=== PATIENT | male | born 1985 | race African-American/Black ===

== ENCOUNTER → 2018-12-12 | Emergency (ER) | payer SELFPAY ==
[~2018-12-12] MED LIST: AMOX TR/POT CLAV 875MG/125MG TABLETS (FP) ONE; AMOX TR/POT CLAV 875MG/125MG TABLETS (FP) PO ONE; DIPHTH,PERTUSS(ACELL),TET 0.5 ML DISP.SYRIN IM ONE; FLUORESCEIN NA 1 EA STRIP OD ONE; TETRACAINE 0.5% HCL 0.6ML DROPPER.BOTTLE OD ONE; TETRACAINE 0.5% OPHTH SOLN 2 ML BOTTLE ONE
--- NOTE | 2018-12-12 05:02 | PDOC ---
Attending Attestation - Resident Resident Name: Shameka Jackson - ED Attending Attestation I have performed the following: I have examined & evaluated the patient, The case was reviewed & discussed with the resident, I agree w/resident's findings & plan - HPI HPI: 12/12/18 06:08 Pt went to his friend's home last night and was snoozing on the floor, when friend's cat walked up and scratched his right eyelis, now with mid-upper lid horizontal laceration that gets irregular and deep, as well as approaches the lid margin. - Physicial Exam PE: 12/12/18 06:10 Pt's contact lenses are not in eyes. Right upper lid hrorizontal 1cm laceration that becomes irregular and approachs the lateral 3rd of the right lid margin. Pt has other deep wounds in the area, from the other claws in the cat's paw. No orbit/corneal involvement. Pt has normal neuro exam. - Medical Decision Making 12/12/18 05:36 Paged and spoke to fermín [employer] absorption operator, and she tells me that she doesn't repair eyelids. Call placed and message left for Dr. Carnes, plastics absorption operator. He promises to call back in 15 minutes if available. 12/12/18 05:53 Deyvi didn't call back. We will transfer the patient to [facility] for eyelid repair. 12/12/18 06:07 Dr. Chandan Mazariegos, [facility], accepts the case for transfer to the ER. Dr. Lal, [facility] attending, agrees to the transfer. BLS EMS called. 12/12/18 06:53 Pt treated with augmentin and tetanus here.
[2018-12-12 05:13] VITALS: BMI 26.1
--- NOTE | 2018-12-12 05:16 | PDOC ---
History of Present Illness - General Stated Complaint: EYE PROBLEM/ATTACKED BY A CAT Time Seen by Provider: 12/12/18 04:35 History Source: Patient, Significant Other Exam Limitations: No Limitations - History of Present Illness Initial Comments: 12/12/18 05:05 33yo M with no significant PMH presenting to ED after cat scratched him in the R eye. Pt states he was lying down with his eyes closed and felt the cat scratch him. Cat belongs to the patient and girlfriend and has had vaccinations. Pt denies eye pain, pain with movement, decreased vision. He wears contacts but thinks it fell out when the cat scratched him. PMD: none PSH: none PMH: none Meds: none Allergies: nkda Past History - Past Medical History Allergies/Adverse Reactions: Allergies Allergy/AdvReac Type Severity Reaction Status Date / Time No Known Allergies Allergy Verified 12/12/18 05:05 Home Medications: Ambulatory Orders NK [No Known Home Medication] 12/12/18 Review of Systems - Review of Systems Constitutional: No: Symptoms Reported HEENTM: Yes: See HPI Respiratory: No: Symptoms reported Cardiac (ROS): No: Symptoms Reported ABD/GI: No: Symptoms Reported : No: Symptoms Reported Musculoskeletal: No: Symptoms Reported Integumentary: Yes: See HPI Neurological: No: Symptoms reported *Physical Exam - Physical Exam General Appearance: Yes: Nourished, Appropriately Dressed. No: Apparent Distress HEENT: positive: EOMI, DONNELL, Other (no corneal abrasions in both eyes. no pain with eye movements. poor vision without contacts. no foreign body seen. R eyelid has superficial laceratio extending to eyelash margin, does not penetrate palpebra. minimal scratches on nasal bridge and R inferior lid. L eye had contact with white carrillo/growth which was removed. ). negative: Pale Conjunctivae Respiratory/Chest: positive: Lungs Clear, Normal Breath Sounds Cardiovascular: positive: Regular Rhythm, Regular Rate, S1, S2. negative: Edema , JVD, Murmur Gastrointestinal/Abdominal: positive: Normal Bowel Sounds, Soft. 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 irregular laceration across middle eyelid with vertical laceration extending to margin. non penetrative. no changes in vision. corneas not affected bilaterally. will give boostrix and augmentin. called ophtho here (Dr. Singh), does not do repairs. No response from Plastics. Will need to be transferred. accepted by Dr. Chandan Castorena (ophtho) and Dr. Fallon (ED) [facility]. pt agreed to transfer. Discharge - Discharge Information Problems reviewed: Yes Clinical Impression/Diagnosis: Eyelid laceration, right Qualifiers: Encounter type: initial encounter Qualified Code(s): S01.111A - Laceration without foreign body of right eyelid and periocular area, initial encounter Condition: Stable Disposition: TRANSFER ACUTE CARE/OTHER HOSP - Admission No - Follow up/Referral - Patient Discharge Instructions - Post Discharge Activity
[2018-12-12 07:45] VITALS: BP 116/70; TEMP 98.4
[2018-12-12 07:47] VITALS: PULSE 84
== END | disposition short-term general hospital (02) ==
LOC: JER 04:29
PROC: 3E0234Z Introduction of Serum, Toxoid and Vaccine into Muscle, Percutaneous Approach (ICD-10-PCS; principal; 2018-12-12)
DX: S01.111A Laceration without foreign body of right eyelid and periocular area, initial encounter (principal); W55.03XA Scratched by cat, initial encounter; Y93.89 Activity, other specified; Y92.038 Other place in apartment as the place of occurrence of the external cause; Y99.8 Other external cause status
CPT/HCPCS: 90715; 99283-25